=== PATIENT | male | born 1945 | race Caucasian/White ===

== ENCOUNTER → 2023-02-22 | Outpatient (CLI) | payer MEDICARE ==
[~2023-02-22] MED LIST: ALPHTAB PO; BUDE10.22 INH; CALC600T67 PO; CETI-24 PO; ENAL1TAB48 PO; FURO20TA2 PO; GABA-1171 PO; HUMA50IN4 SQ; LANTINJ4 SQ; MELA5TAB7 PO; MULT-40 PO; PANT40TA29 PO; SIMV10TA21 PO; TAMS1CAP17 PO; XALA0.007 OU
== END ==
LOC: M CARPUL 13:55
PROVIDERS: ATTEND Internal Medicine Critical Care Medicine
DX: R91.8 Other nonspecific abnormal finding of lung field (principal)

== ENCOUNTER → 2023-02-26 | Outpatient (CLI) | payer MEDICARE ==
[~2023-02-26] MED LIST changes: +HOME MED LIST COMPLETE! XX SCH; +LIDOCAINE 1% MDV 20ML VIAL As Ordered ONE
[2023-02-26 11:30] VITALS: TEMP 97.7
[2023-02-26 15:00] VITALS: BP 147/78; O2SAT 98
== END ==
LOC: M IRPRO 11:14
PROVIDERS: ATTEND Internal Medicine Critical Care Medicine
DX: R91.8 Other nonspecific abnormal finding of lung field (principal); J95.811 Postprocedural pneumothorax

== ENCOUNTER → 2023-03-22 | Outpatient (CLI) | payer MEDICARE ==
[~2023-03-22] MED LIST changes: -HOME MED LIST COMPLETE! XX SCH; -LIDOCAINE 1% MDV 20ML VIAL As Ordered ONE; +SYMB80INH INH
== END ==
LOC: M PLARAD 08:29
PROVIDERS: ATTEND Internal Medicine Medical Oncology
DX: C34.90 Malignant neoplasm of unspecified part of unspecified bronchus or lung (principal)

== ENCOUNTER 2023-04-13 16:06 | Emergency (ER) | payer MEDICARE ==
[~2023-04-13] VITALS: Ht 177.8 cm; Wt 116.5 kg
[2023-04-13] MEDS ORDERED: OXYC-517 (18:39)
[2023-04-13 19:50] LABS: BASO % 0.5 % (0.0-1.0); EOS # 0.3 10^3/uL (0.0-0.5); EOS % 2.9 % (0.0-3.0); HEMATOCRIT 32.6 % (42.0-52.0); HEMOGLOBIN 10.9 g/dl (13.5-17.5); LYMPH % 11.8 % (24.0-44.0); MEAN CORPUSCULAR HEMOGLOBIN 30.4 pg (27.0-33.0); MEAN CORPUSCULAR HGB CONC 33.4 g/dl (32.0-36.5); MEAN CORPUSCULAR VOLUME 91.1 fl (80.0-96.0); MONO # 0.9 10^3/uL (0.0-0.8); MONO % 10.8 % (2.0-8.0); NEUTROPHILS # 6.2 10^3/uL (1.5-8.5); NEUTROPHILS % 73.2 % (36.0-66.0); PLATELET COUNT, AUTOMATED 150 10^3/uL (150-450); RED BLOOD COUNT 3.58 10^6/uL (4.30-6.10); WHITE BLOOD COUNT 8.5 10^3/uL (4.0-10.0)
[2023-04-13 19:57] LABS: ALBUMIN 3.1 G/DL (3.2-5.2); BILIRUBIN,DIRECT 0.1 MG/DL (<0.4); BILIRUBIN,TOTAL 0.4 MG/DL (0.3-1.2); TOTAL PROTEIN 5.8 G/DL (5.7-8.2)
[2023-04-13] MEDS: FLEET ENEMA PR PRN ×2 (22:22→22:23)
[2023-04-13] MEDS ORDERED: MIRA3350 PO (23:52)
[2023-04-13 23:54] VITALS: BP 136/71; TEMP 97; O2SAT 97
== END 2023-04-14 00:01 | disposition home or self-care (01) ==
LOC: M ED 16:06
DX: K59.00 Constipation, unspecified (principal); R33.9 Retention of urine, unspecified; E11.9 Type 2 diabetes mellitus without complications; Z85.118 Personal history of other malignant neoplasm of bronchus and lung; Z87.891 Personal history of nicotine dependence

== ENCOUNTER → 2023-08-09 | Outpatient (CLI) | payer MEDICARE ==
[~2023-08-09] MED LIST changes: +MIRA3350 PO; +OXYC-517
== END ==
LOC: M CARPUL 13:01
PROVIDERS: ATTEND Internal Medicine Critical Care Medicine
DX: Z87.891 Personal history of nicotine dependence (principal)

== ENCOUNTER → 2024-04-22 | Outpatient (CLI) | payer MEDICARE ==
[~2024-04-22] MED LIST changes: +LIDOCAINE 1% MDV 20ML VIAL As Ordered ONE; +NS 1,000 ML IV SCH
[2024-04-22 12:05] VITALS: TEMP 98.1
[2024-04-22 12:29] LABS: HEMATOCRIT 30.3 % (42.0-52.0); HEMOGLOBIN 9.9 g/dl (13.5-17.5); MEAN CORPUSCULAR HEMOGLOBIN 31.1 pg (27.0-33.0); MEAN CORPUSCULAR HGB CONC 32.7 g/dl (32.0-36.5); MEAN CORPUSCULAR VOLUME 95.3 fl (80.0-96.0); PLATELET COUNT, AUTOMATED 130 10^3/uL (150-450); RED BLOOD COUNT 3.18 10^6/uL (4.30-6.10); WHITE BLOOD COUNT 7.2 10^3/uL (4.0-10.0)
[2024-04-22 12:42] LABS: INR 1.16; PROTHROMBIN TIME 14.5 SECONDS (12.5-14.5)
[2024-04-22 15:30] VITALS: BP 121/73; O2SAT 98
== END ==
LOC: M IRPRO 11:54
PROVIDERS: ATTEND Internal Medicine Critical Care Medicine
DX: R91.8 Other nonspecific abnormal finding of lung field (principal)